=== PATIENT | male | born 1980 | race Caucasian/White ===

== ENCOUNTER 2017-03-19 07:15 | Emergency (ER) | payer MEDICAID ==
--- NOTE | 2017-03-19 07:47 | EDM.PDOC ---
ED HPI GENERAL MEDICAL PROBLEM - General Chief Complaint: Neurological Problem Stated Complaint: [facility] Time Seen by Provider: 03/19/17 07:42 Source of Information: Reports: Patient, EMS History Limitations: Reports: No Limitations - History of Present Illness INITIAL COMMENTS - FREE TEXT/NARRATIVE: pt arrived fter having a seizure at work. He has not had a seizure for the past 5-6 monthes. He has been taking his meds regularly. He did hit the rt side of his head on an unknown object. Because he was seizuring he does not know whether he was knocked out or not, Onset: Today Duration: Minutes:, Other (pt had the seizure while at work. ) Location: Reports: Head, Other (Pt hit the rt side of his head. ) Associated Symptoms: Reports: No Other Symptoms - Related Data Allergies Allergy/AdvReac Type Severity Reaction Status Date / Time carbamazepine [From Tegretol] AdvReac Irritabilit Verified 03/19/17 10:38 y Home Meds: Home Meds Citalopram [Citalopram HBr] 20 mg PO DAILY 03/19/17 [History] ClonazePAM [KlonoPIN] 0.5 mg PO BID 03/19/17 [History] Divalproex Sodium [Depakote] 2 tab PO BID 03/19/17 [History] Past Medical History Neurological History: Reports: Seizure Endocrine/Metabolic History: Reports: Other (See Below) Other Endocrine/Metabolic History: dysthymic disorder Social & Family History - Tobacco Use Smoking Status *Q: Current Every Day Smoker Years of Tobacco use: 20 Packs/Tins Daily: 1 - Caffeine Use Caffeine Use: Reports: Coffee - Recreational Drug Use Recreational Drug Use: No ED ROS GENERAL - Review of Systems Review Of Systems: See Below Constitutional: Reports: No Symptoms HEENT: Reports: No Symptoms Respiratory: Reports: No Symptoms Cardiovascular: Reports: No Symptoms Endocrine: Reports: No Symptoms GI/Abdominal: Reports: No Symptoms : Reports: No Symptoms Musculoskeletal: Reports: No Symptoms Skin: Reports: No Symptoms Neurological: Denies: Other (Pt has a known seizure disorder. He has worked at his present job for about 2 monthes. He has not been ill or has not skeppedhis meds. ) Psychiatric: Reports: No Symptoms - Physical Exam Exam: See Below Text/Narrative:: pt was at work today and he had a grand mal seizure. He has a known seizure disorder. He did hit the rt side of his head. Exam Limited By: No Limitations General Appearance: Alert, Other ( pupils are equal and reactive. ) Ears: Normal TMs Nose: Normal Inspection Throat/Mouth: Normal Inspection Head Exam: Other ( swelling on the rt forehead area. ) Neck: Normal Inspection Respiratory/Chest: No Respiratory Distress Cardiovascular: Regular Rate, Rhythm GI/Abdominal: Soft, Non-Tender (Male) Exam: Normal Inspection Rectal (Males) Exam: Deferred Neuro Exam (Abbreviated): Alert, Oriented, Normal Cognition, Other (pt is lethargic. ) Back Exam: Normal Inspection Extremities: Normal Inspection Psychiatric: Normal Affect Course - Vital Signs Last Recorded V/S: Last Vital Signs Temp 35.4 C 03/19/17 08:18 Pulse 100 03/19/17 08:18 Resp 20 03/19/17 08:18 BP 140/81 03/19/17 08:18 Pulse Ox 98 03/19/17 08:18 - Orders/Labs/Meds Orders: Active Orders 24 hr Category Date Time Status Head wo Cont [CT] Stat Exams 03/19/17 07:49 Taken CARBAMAZEPINE [REF] Stat Lab 03/19/17 07:45 Received Sodium Chloride 0.9% [Normal Saline] 1,000 ml Med 03/19/17 09:00 Active IV ASDIRECTED Medication Orders Sodium Chloride (Normal Saline) 1,000 mls @ 999 mls/hr IV ASDIRECTED DIEGO Last Admin: 03/19/17 09:07 Dose: 999 mls/hr Labs: Laboratory Tests 03/19/17 03/19/17 03/19/17 Range/Units 07:34 07:34 09:43 WBC 8.9 (4.5-11.0) K/uL RBC 5.10 (4.30-5.90) M/uL Hgb 16.2 H (12.0-15.0) g/dL Hct 47.2 (40.0-54.0) % MCV 93 (80-98) fL MCH 32 H (27-31) pg MCHC 34 (32-36) % Plt Count 408 H (150-400) K/uL Neut % (Auto) 69 H (36-66) % Lymph % (Auto) 25 (24-44) % [place] % (Auto) 6 (2-6) % Eos % (Auto) 0 L (2-4) % Baso % (Auto) 0 (0-1) % Sodium 141 (140-148) mmol/L Potassium 4.0 (3.6-5.2) mmol/L Chloride 104 (100-108) mmol/L Carbon Dioxide 19 L (21-32) mmol/L Anion Gap 22.0 H (5.0-14.0) mmol/L BUN 11 (7-18) mg/dL Creatinine 1.2 (0.8-1.3) mg/dL Est Cr Clr Drug Dosing 72.29 mL/min Estimated GFR (MDRD) > 60 (>60) Glucose 126 H (74-106) mg/dL Calcium 8.9 (8.5-10.1) mg/dL Total Bilirubin 0.7 (0.2-1.0) mg/dL AST 23 (15-37) U/L ALT 31 (12-78) U/L Alkaline Phosphatase 65 (46-116) U/L Total Protein 7.8 (6.4-8.2) g/dL Albumin 3.9 (3.4-5.0) g/dL Globulin 3.9 H (2.3-3.5) g/dL Albumin/Globulin Ratio 1.0 L (1.2-2.2) Urine Color Urine Appearance Urine pH (4.5-8.0) Ur Specific [place] (1.008-1.030) Urine Protein (NEGATIVE) mg/dL Urine Glucose (UA) (NEGATIVE) mg/dL Urine Ketones (NEGATIVE) mg/dL Urine Occult Blood (NEGATIVE) Urine Nitrite (NEGAITVE) Urine Bilirubin (NEGATIVE) Urine Urobilinogen (NORMAL) mg/dL Ur Leukocyte Esterase (NEGATIVE) Urine RBC (0-5) Urine WBC (0-5) Ur Epithelial Cells Amorphous Sediment Urine Bacteria Urine Mucus Urine Opiates Screen Negative (NEGATIVE) Ur Oxycodone Screen Negative (NEGATIVE) Urine Methadone Screen Negative (NEGATIVE) Ur Propoxyphene Screen Negative (NEGATIVE) Ur Barbiturates Screen Negative (NEGATIVE) Ur Tricyclics Screen Negative (NEGATIVE) Ur Phencyclidine Scrn Negative (NEGATIVE) Ur Amphetamine Screen Positive H (NEGATIVE) U Methamphetamines Scrn Positive H (NEGATIVE) Urine MDMA Screen Negative (NEGATIVE) U Benzodiazepines Scrn Negative (NEGATIVE) U Cocaine Metab Screen Negative (NEGATIVE) U Marijuana (THC) Screen Positive H (NEGATIVE) 03/19/17 Range/Units 09:43 WBC (4.5-11.0) K/uL RBC (4.30-5.90) M/uL Hgb (12.0-15.0) g/dL Hct (40.0-54.0) % MCV (80-98) fL MCH (27-31) pg MCHC (32-36) % Plt Count (150-400) K/uL Neut % (Auto) (36-66) % Lymph % (Auto) (24-44) % [place] % (Auto) (2-6) % Eos % (Auto) (2-4) % Baso % (Auto) (0-1) % Sodium (140-148) mmol/L Potassium (3.6-5.2) mmol/L Chloride (100-108) mmol/L Carbon Dioxide (21-32) mmol/L Anion Gap (5.0-14.0) mmol/L BUN (7-18) mg/dL Creatinine (0.8-1.3) mg/dL Est Cr Clr Drug Dosing mL/min Estimated GFR (MDRD) (>60) Glucose (74-106) mg/dL Calcium (8.5-10.1) mg/dL Total Bilirubin (0.2-1.0) mg/dL AST (15-37) U/L ALT (12-78) U/L Alkaline Phosphatase (46-116) U/L Total Protein (6.4-8.2) g/dL Albumin (3.4-5.0) g/dL Globulin (2.3-3.5) g/dL Albumin/Globulin Ratio (1.2-2.2) Urine Color Yellow Urine Appearance Clear Urine pH 5.0 (4.5-8.0) Ur Specific [place] 1.020 (1.008-1.030) Urine Protein Negative (NEGATIVE) mg/dL Urine Glucose (UA) Normal (NEGATIVE) mg/dL Urine Ketones 15 H (NEGATIVE) mg/dL Urine Occult Blood Trace (NEGATIVE) Urine Nitrite Negative (NEGAITVE) Urine Bilirubin Negative (NEGATIVE) Urine Urobilinogen Normal (NORMAL) mg/dL Ur Leukocyte Esterase Negative (NEGATIVE) Urine RBC 0-5 (0-5) Urine WBC 0-5 (0-5) Ur Epithelial Cells Few Amorphous Sediment Not seen Urine Bacteria Few Urine Mucus Few Urine Opiates Screen (NEGATIVE) Ur Oxycodone Screen (NEGATIVE) Urine Methadone Screen (NEGATIVE) Ur Propoxyphene Screen (NEGATIVE) Ur Barbiturates Screen (NEGATIVE) Ur Tricyclics Screen (NEGATIVE) Ur Phencyclidine Scrn (NEGATIVE) Ur Amphetamine Screen (NEGATIVE) U Methamphetamines Scrn (NEGATIVE) Urine MDMA Screen (NEGATIVE) U Benzodiazepines Scrn (NEGATIVE) U Cocaine Metab Screen (NEGATIVE) U Marijuana (THC) Screen (NEGATIVE) Meds: Medications Generic Name Dose Route Start Last Admin Trade Name Freq PRN Reason Stop Dose Admin Sodium Chloride 1,000 mls @ 999 mls/hr 03/19/17 09:00 03/19/17 09:07 Normal Saline IV 999 mls/hr ASDIRECTED DIEGO Administration Discontinued Medications Generic Name Dose Route Start Last Admin Trade Name Freq PRN Reason Stop Dose Admin Divalproex Sodium 250 mg 03/19/17 09:50 03/19/17 10:18 Divalproex Sodium PO 03/19/17 09:51 250 mg ONETIME ONE Administration - Re-Assessments/Exams Free Text/Narrative Re-Assessment/Exam: 03/19/17 10:36 pt had a normal chm profile. His wbc was not elevated. He had a cat scn of the head which was normal. His drug screen was positive for mar[place]una and Meth. He denies the use of meth and I advised that the marajauna has a number of things that can be possibly with it. The Meth could have enhancd his chance of a seizure. He was given an extra 250 0f depakote . Will await the results of his depakote level. 03/19/17 10:38 Departure - Departure Time of Disposition: 10:41 Disposition: Home, Self-Care 01 Condition: fair Clinical Impression: Seizure, Seizure disorder - Discharge Information Forms: ED Department Discharge Care Plan Goals: avoid street drugs, will notify f the results of the depakote level. Cont same dose of depakote. No work today and may return tomorrow. - My Orders Last 24 Hours: My Active Orders 03/19/17 07:45 CARBAMAZEPINE [REF] Stat 03/19/17 07:49 Head wo Cont [CT] Stat 03/19/17 09:00 Sodium Chloride 0.9% [Normal Saline] 1,000 ml IV ASDIRECTED - Assessment/Plan Last 24 Hours: My Active Orders 03/19/17 07:45 CARBAMAZEPINE [REF] Stat 03/19/17 07:49 Head wo Cont [CT] Stat 03/19/17 09:00 Sodium Chloride 0.9% [Normal Saline] 1,000 ml IV ASDIRECTED
[2017-03-19] MEDS ORDERED: Sodium Chloride 0.9% 1,000 ML IV SCH (09:00)
[2017-03-19] MEDS ORDERED: Divalproex Sodium Delayed-Release 250 MG Tab.CR PO ONE (09:50)
[2017-03-19 10:52] VITALS: BP 122/67
== END 2017-03-19 11:23 | disposition home or self-care (01) ==
LOC: JP.ED 07:15
DX: G40.909 Epilepsy, unspecified, not intractable, without status epilepticus (principal); F17.210 Nicotine dependence, cigarettes, uncomplicated; Z79.899 Other long term (current) drug therapy; Z88.8 Allergy status to other drugs, medicaments and biological substances
CPT/HCPCS: 36415; 70450; 80053; 80156; 80305; 81001; 85025; 96360; 99284; A9270; J7040

== ENCOUNTER 2017-03-28 12:01 | Emergency (ER) | payer MEDICAID ==
--- NOTE | 2017-03-28 12:05 | EDM.PDOC ---
[id number]: [facility] [place] Time Seen by Provider: 03/28/17 12:02 Source of Information: Reports: EMS, Family History Limitations: Reports: Altered Mental Status - History of Present Illness INITIAL COMMENTS - FREE TEXT/NARRATIVE: 36-year-old male brought in after having a seizure at home, becoming incontinent. He has a history of seizures in the past. As he was coming around in a postictal state he tried to hand the first responders a small plastic bag which appears to have some crystals of some type of drug. Now that he is more coherent he denies knowing what it is. He admits to likely missing some of his medication dosing. Severity: Moderate Associated Symptoms: Reports: No Other Symptoms - Related Data Allergies Allergy/AdvReac Type Severity Reaction Status Date / Time codeine Allergy Shaking Verified 03/28/17 12:05 carbamazepine [From Tegretol] AdvReac Irritabilit Verified 03/28/17 12:04 y Home Meds: Home Meds Citalopram [Citalopram HBr] 20 mg PO DAILY 03/19/17 [History] ClonazePAM [KlonoPIN] 0.5 mg PO BID 03/19/17 [History] Divalproex Sodium [Depakote] 2 tab PO BID 03/19/17 [History] Past Medical History Neurological History: Reports: Seizure Endocrine/Metabolic History: Reports: Other (See Below) Other Endocrine/Metabolic History: dysthymic disorder Social & Family History - Tobacco Use Smoking Status *Q: Current Every Day Smoker Years of Tobacco use: 20 Packs/Tins Daily: 1 - Caffeine Use Caffeine Use: Reports: Coffee - Recreational Drug Use Recreational Drug Use: No ED ROS GENERAL - Review of Systems Review Of Systems: Unable To Obtain (Patient not cooperative, not answering questions even after returning to baseline) - Physical Exam Exam: See Below Exam Limited By: No Limitations General Appearance: Alert, No Apparent Distress, Other (Initially somewhat confused) Eye Exam: Bilateral Eye: EOMI Respiratory/Chest: Lungs Clear Cardiovascular: Regular Rate, Rhythm, Tachycardia Neuro Exam (Abbreviated): Alert, No Motor/Sensory Deficits Psychiatric: Depressed Mood, Flat Affect Skin Exam: Warm, Dry Course - Vital Signs Last Recorded V/S: Last Vital Signs Temp 96.3 F 03/28/17 12:02 Pulse 113 H 03/28/17 12:02 Resp 20 03/28/17 12:02 BP 148/98 H 03/28/17 12:02 Pulse Ox 98 03/28/17 12:02 - Orders/Labs/Meds Labs: Laboratory Tests 03/28/17 03/28/17 03/28/17 Range/Units 12:12 12:12 12:34 WBC 11.3 H (4.5-11.0) K/uL RBC 5.24 (4.30-5.90) M/uL Hgb 16.6 H (12.0-15.0) g/dL Hct 48.5 (40.0-54.0) % MCV 93 (80-98) fL MCH 32 H (27-31) pg MCHC 34 (32-36) % Plt Count 316 (150-400) K/uL Neut % (Auto) 77 H (36-66) % Lymph % (Auto) 15 L (24-44) % [place] % (Auto) 7 H (2-6) % Eos % (Auto) 0 L (2-4) % Baso % (Auto) 0 (0-1) % Sodium 140 (140-148) mmol/L Potassium 3.8 (3.6-5.2) mmol/L Chloride 102 (100-108) mmol/L Carbon Dioxide 24 (21-32) mmol/L Anion Gap 14.3 H (5.0-14.0) mmol/L BUN 7 (7-18) mg/dL Creatinine 1.2 (0.8-1.3) mg/dL Est Cr Clr Drug Dosing 72.29 mL/min Estimated GFR (MDRD) > 60 (>60) Glucose 131 H (74-106) mg/dL Calcium 8.9 (8.5-10.1) mg/dL Total Bilirubin 0.5 (0.2-1.0) mg/dL AST 17 (15-37) U/L ALT 24 (12-78) U/L Alkaline Phosphatase 79 (46-116) U/L Total Protein 7.5 (6.4-8.2) g/dL Albumin 3.8 (3.4-5.0) g/dL Globulin 3.7 H (2.3-3.5) g/dL Albumin/Globulin Ratio 1.0 L (1.2-2.2) Urine Opiates Screen Negative (NEGATIVE) Ur Oxycodone Screen Negative (NEGATIVE) Urine Methadone Screen Negative (NEGATIVE) Ur Propoxyphene Screen Negative (NEGATIVE) Ur Barbiturates Screen Negative (NEGATIVE) Ur Tricyclics Screen Negative (NEGATIVE) Ur Phencyclidine Scrn Negative (NEGATIVE) Ur Amphetamine Screen Positive H (NEGATIVE) U Methamphetamines Scrn Positive H (NEGATIVE) Urine MDMA Screen Positive H (NEGATIVE) U Benzodiazepines Scrn Negative (NEGATIVE) U Cocaine Metab Screen Negative (NEGATIVE) U Marijuana (THC) Screen Positive H (NEGATIVE) - Re-Assessments/Exams Free Text/Narrative Re-Assessment/Exam: 03/28/17 12:05 CBC, CMP and urine drug screen were obtained. Patient was monitored. 03/28/17 12:54 Urine drug screen was positive for methamphetamine. 03/28/17 12:54 Rest of his labs were generally nonspecific and reassuring. Patient was encouraged to continue taking his medications as prescribed and avoiding methamphetamine in the future. Departure - Departure Time of Disposition: 13:10 Disposition: Home, Self-Care 01 Condition: fair Clinical Impression: Methamphetamine abuse, Seizure - Discharge Information Instructions: Stimulant Use Disorder-Methamphetamines Referrals: PCP,None [Primary Care Provider] - Forms: ED Department Discharge Care Plan Goals: Continue your medications as prescribed, avoid methamphetamine in the future. Return if concerns.
[2017-03-28 12:08] VITALS: BP 148/98
== END 2017-03-28 13:10 | disposition home or self-care (01) ==
LOC: JP.ED 12:01
DX: R56.9 Unspecified convulsions (principal); F15.10 Other stimulant abuse, uncomplicated; F17.210 Nicotine dependence, cigarettes, uncomplicated; Z79.899 Other long term (current) drug therapy; Z88.5 Allergy status to narcotic agent; Z88.8 Allergy status to other drugs, medicaments and biological substances
CPT/HCPCS: 36415; 80053; 80305; 85025; 99283

== ENCOUNTER 2017-07-29 15:14 | Emergency (ER) | payer MEDICAID ==
[2017-07-29 15:41] VITALS: BP 128/88
--- NOTE | 2017-07-29 16:43 | EDM.PDOCBH ---
ED HPI GENERAL MEDICAL PROBLEM - General Chief Complaint: Drug or Alcohol Abuse Stated Complaint: EVAL? Time Seen by Provider: 07/29/17 15:58 Source of Information: Reports: Patient, Family, RN Notes Reviewed History Limitations: Reports: No Limitations - History of Present Illness INITIAL COMMENTS - FREE TEXT/NARRATIVE: 36-year-old gentleman presents emergency department today requesting treatment for inpatient methamphetamine abuse and addiction states he last used 5 days ago - Related Data Allergies Allergy/AdvReac Type Severity Reaction Status Date / Time codeine Allergy Shaking Verified 07/29/17 15:41 carbamazepine [From Tegretol] AdvReac Irritabilit Verified 07/29/17 15:41 y Home Meds: Home Meds Citalopram [Citalopram HBr] 20 mg PO DAILY 03/19/17 [History] ClonazePAM [KlonoPIN] 0.5 mg PO ASDIRECTED PRN 03/19/17 [History] Divalproex Sodium [Depakote] 2 tab PO BID 03/19/17 [History] Divalproex Sodium [Divalproex Sodium] 500 mg PO BEDTIME 07/29/17 [History] Past Medical History Musculoskeletal History: Reports: Fracture Other Musculoskeletal History: nose x 2 Neurological History: Reports: Seizure Psychiatric History: Reports: Anxiety, Depression, Suicide Attempt, Suicidal Ideation Endocrine/Metabolic History: Reports: Other (See Below) Other Endocrine/Metabolic History: dysthymic disorder Social & Family History - Tobacco Use Smoking Status *Q: Current Every Day Smoker Years of Tobacco use: 20 Packs/Tins Daily: 1 - Caffeine Use Caffeine Use: Reports: Coffee, Energy Drinks - Recreational Drug Use Recreational Drug Use: No Recreational Drug Type: Reports: Marijuana/Hashish, Methamphetamine Recreational Drug Use Frequency: Daily ED ROS GENERAL - Review of Systems Review Of Systems: ROS reveals no pertinent complaints other than HPI. ED EXAM, BEHAVIORAL HEALTH - Physical Exam Exam: Not Obtained COURSE, BEHAVIORAL HEALTH COMP - Course Vital Signs: Last Vital Signs Temp 96.3 F 07/29/17 15:39 Pulse 95 07/29/17 15:39 Resp 20 07/29/17 15:39 BP 128/88 07/29/17 15:39 Pulse Ox 96 07/29/17 15:39 Departure - Departure Time of Disposition: 16:43 Disposition: Home, Self-Care 01 Condition: Poor Clinical Impression: Methamphetamine abuse - Discharge Information Referrals: PCP,None [Primary Care Provider] - Additional Instructions: Please follow-up with the chemical dependency evaluation and seek treatment for your methamphetamine use - Assessment/Plan Plan: Assessment Acuity = chronic Site and laterality = methamphetamine use and abuse with addiction Etiology = unknown Manifestations = none Location of injury = Home Lab values = none Plan We did have discharge planning come and visit with him and his family he is currently a resident of [facility] gave him information and resources to call to have a rule 25 done which will need to be completed before he can get inpatient treatment discharged home recommend follow-up for chemical dependency evaluation, he was upset and angry about having to wait for this evaluation . This note was dictated using [id number] voice recognition software please call with any questions.
== END 2017-07-29 16:54 | disposition home or self-care (01) ==
LOC: JP.ED 15:14
DX: F15.10 Other stimulant abuse, uncomplicated (principal); F17.210 Nicotine dependence, cigarettes, uncomplicated; F41.9 Anxiety disorder, unspecified; F32.9 Major depressive disorder, single episode, unspecified; Z79.899 Other long term (current) drug therapy; Z88.5 Allergy status to narcotic agent; Z88.8 Allergy status to other drugs, medicaments and biological substances
CPT/HCPCS: 99282